=== PATIENT | male | born 1980 | race African-American/Black ===

== ENCOUNTER 2017-04-30 14:54 | Emergency (ER) | payer OTHER ==
[2017-04-30 15:08] VITALS: BP 145/89; PULSE 90; TEMP 98.1; BMI 33.0
[2017-04-30] MEDS ORDERED: KETOROLAC TROMETHAMINE 15 MG/ML VIAL IM ONE (15:14)
[2017-04-30] MEDS ORDERED: KETOROLAC TROMETHAMINE 30 MG/1 ML VIAL ONE (15:21)
[2017-04-30] MEDS ORDERED: CYCLOBENZAPRINE HCL 10 MG TABLET (FP) PO ONE (15:26)
[2017-04-30] MEDS ORDERED: CYCLOBENZAPRINE HCL 10 MG TABLET (FP) ONE (15:35)
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
== END 2017-04-30 16:50 | disposition home or self-care (01) ==
LOC: FER 14:54
PROC: 3E0233Z Introduction of Anti-inflammatory into Muscle, Percutaneous Approach (ICD-10-PCS; principal; 2017-04-30)
DX: M54.31 Sciatica, right side (principal)
CPT/HCPCS: 93971-TC; 99281-25